=== PATIENT | female | born 1970 | race Caucasian/White ===

== ENCOUNTER 2020-10-03 13:24 | Outpatient (CLI) | payer BC ==
[2020-10-04 01:51] LABS: SARS-CoV-2 PCR by NAA Not Detected (NotDetected)
== END 2020-10-03 13:25 | disposition home or self-care (01) ==
LOC: CSHLAB 13:24
PROVIDERS: ATTEND Internal Medicine Cardiovascular Disease
DX: Z20.822 Contact with and (suspected) exposure to COVID-19 (principal)
CPT/HCPCS: 87635; U0003; U0005

== ENCOUNTER 2020-10-08 13:48 | Outpatient (CLI) | payer BC | END 2020-10-08 13:49 | disposition home or self-care (01) | LOC: CSHCP 13:48 | PROVIDERS: ATTEND Family Medicine | DX: R06.02 Shortness of breath (principal) | CPT/HCPCS: 94010; 94726; 94729 ==

== ENCOUNTER 2021-08-03 13:02 | Outpatient (CLI) | payer BC ==
[2021-08-04 03:27] LABS: SARS-CoV-2 PCR by NAA Not Detected (NotDetected)
== END 2021-08-03 13:03 | disposition home or self-care (01) ==
LOC: CSHLAB 13:02
PROVIDERS: ATTEND Internal Medicine Gastroenterology
DX: Z20.822 Contact with and (suspected) exposure to COVID-19 (principal); Z12.11 Encounter for screening for malignant neoplasm of colon
CPT/HCPCS: U0003; U0005